=== PATIENT | male | born 1980 | race Two or more races ===

== ENCOUNTER 2024-12-11 00:11 | Emergency (ER) | payer MEDICAID, SELFPAY ==
[2024-12-11 01:10] VITALS: BP 151/96; PULSE 72; RESP 18; TEMP 36.8; O2SAT 97
--- NOTE | 2024-12-11 01:22 | EDNOTE_ITS ---
<Statement entered by Hallie Shin MD - 12/23/24 19:09> As co-signing physician, I was present and available for consult prn. I concur with the plan and care as documented by the midlevel provider. ED Dental RME/HPI General Chief complaint: Dental/Oral/Throat Stated complaint: LEFT CHEEK SWELLING Time Seen by Provider: 12/11/24 00:16 Source: patient, RN notes reviewed and old records reviewed Arrival date/time: 12/11/24 00:11 Mode of arrival: ambulatory Limitations: no limitations RME / HPI RME / HPI Narrative: 44yom presents to ED for 5-day history of dental pain. Patient reports left lower toothache with mild facial swelling tonight. No fever, shortness of breath, nausea/vomiting or neck pain reported. No medications or treatments since symptom onset. Related Data Previous Rx's ?Medication ?Instructions ?Recorded amoxicillin 875 mg-potassium 1 tab PO BID 7 days #14 t abs 12/11/24 clavulanate 125 mg tablet chlorhexidine gluconate 0.12 % 15 ml PO BID #300 mL mouthwash (Peridex) ibuprofen 600 mg tablet 600 mg PO Q6H PRN pain #20 t abs 12/11/24 Allergies Allergy/AdvReac Type Severity Reaction Status Date / Time No Known Allergies Allergy Verified 12/11/24 00:14 Review of Systems Review of Systems Systems Reviewed: All systems reviewed, normal except as documented Constitutional Constitutional: Denies chills, Denies fever(s) and Denies headache(s) ENT Ears, Nose, Mouth, and Throat: Reports dental pain, Denies headache(s), Denies neck pain and Denies sore throat Cardiovascular Cardiovascular: Denies dyspnea Respiratory Respiratory: Denies dyspnea Gastrointestinal Gastrointestinal: Denies nausea and Denies vomiting Musculoskeletal Musculoskeletal: Denies neck pain Neurologic Neurologic: Denies headache(s) Past Medical History Surgical History OTHER SURGICAL HX: Denies past surgical history Social History SMOKING STATUS: Never smoker SUBSTANCE USE: does not use ALCOHOL: Never Past Medical History Comments PMH COMMENT: Denies past medical history ED Exam General Limitations: Present no limitations General appearance: Present alert and in no apparent distress Head Head exam: Present atraumatic and normocephalic Eye Eye exam: Present normal appearance, PERRL and EOMI ENT ENT exam: Present normal oropharynx, mucous membranes moist and other (Tenderness over the left lower premolar. Mild surrounding gingival erythema/swelling. No obvious drainable abscess. Mild left mandibular swelling. No trismus.) Neck Neck exam: Present normal inspection and full ROM; Absent tenderness, meningismus or lymphadenopathy Chest Chest inspection: Present normal inspection and symmetric chest wall rise Respiratory Respiratory exam: Present normal lung sounds bilaterally; Absent respiratory distress or stridor Cardiovascular Cardiovascular exam: Present regular rate and normal rhythm Extremities Exam Extremities exam: Present normal inspection and full ROM Neurological Exam Neurological exam: Present alert and oriented X3 Psychiatric Psychiatric exam: Present normal affect and normal mood Skin Skin exam: Present warm, dry, intact and normal color Course Quality Measures none Orders Category Date Time Status Ibuprofen Tab [Motrin Tab] Med 12/11/24 01:39 Discontinued 800 mg PO X1 ONE Vital Signs Vital signs: Vital Signs Temperature 98.2 F 12/11/24 01:10 Pulse Rate 72 12/11/24 01:10 Respiratory Rate 18 12/11/24 01:10 Blood Pressure 151/96 H 12/11/24 01:10 Pulse Oximetry (%) 97 12/11/24 01:10 Oxygen Delivery Method Room Air 12/11/24 01:10 Dental / Oral MDM Narrative MDM Narrative:: 44yom presents to ED for 5-day history of dental pain. Patient reports left lower toothache with mild facial swelling tonight. No fever, shortness of breath, nausea/vomiting or neck pain reported. No medications or treatments since symptom onset. Will treat for dental pain and possible infection. Encouraged close dentistry follow up. Stable for dc, RTED precautions given. Patient data External records reviewed:: [facility] previous records ( ED visit for perirectal abscess) Clinical information provided by:: patient Social determinants that could affect healthcare access:: other (specify) (Poor access to healthcare, acculturation difficulty) Patient has the following chronic illnesses:: None How is presenting disease/condition affected by chronic disease/condition?: no chronic disease Evaluation data The following diagnostics were reviewed and interpreted by me:: other (specify) (none) Lab and/or radiology exams considered but not ordered:: None Interpretation Summary: na Medications / Prescriptions Medications or Prescriptions considered but not ordered:: None Medication administrations:: Medication Administration History Discontinued Medications Ibuprofen (Ibuprofen Tab 400 Mg Tablet) 800 mg PO X1 ONE Stop: 12/11/24 01:40 Last Admin: 12/11/24 01:45 Dose: 800 mg Documented By: None Consultations Consultation(s) initiated? (list below): No Diagnosis Dental Differential Diagnosis: gingival abscess, dental caries, toothache, dental abscess and fracture of tooth Most likely diagnosis given after review of the tests above:: Dental pain Admission Indicated Admission indicated?: not indicated Admission Request Was there a request for admission?: No Disposition Plan Disposition Plan: Discharge Discharge Attestation Discharge Attestation: The patient and all family members were given an opportunity to ask questions and understood the discharge instructions. Discharge instructions specifically effects, indications for sooner follow up or return to the emergency department, and the expected course of current diagnosis. Patient condition: Stable Discharge Plan Plan Patient Disposition: HOME (Self Care) Patient condition on transfer: Stable Prescriptions/Referrals Prescriptions/Med Rec: New amoxicillin-pot clavulanate 875-125 mg tablet 1 tab PO BID 7 Days Qty: 14 0RF ibuprofen 600 mg tablet 600 mg PO Q6H PRN (Reason: pain) Qty: 20 0RF chlorhexidine gluconate [Peridex] 0.12 % mouthwash 15 ml PO BID Qty: 300 0RF Rx Instructions: Swish and spit. Use for 30 seconds Problem List Clinical Impression: Toothache, Dental caries Patient/Caregiver Discharge Instructions Education Materials: ED Dental Pain Print Language: Armenian Stand Alone Forms: Jerrica Award Info., Patient Portal Info Letter PA/RESIDENTIAL SUBCONTRACTOR Supervising Physician PA/RESIDENTIAL SUBCONTRACTOR Supervising Physician: Kip
[2024-12-11] MEDS: IBUPROFEN TAB 400 MG TABLET 800 MG PO (01:45)
== END 2024-12-11 01:48 | disposition home or self-care (01) ==
LOC: SERX 01:41
PROVIDERS: Emergency Provider Emergency Medicine
DX: K02.9 Dental caries, unspecified (principal)
CPT/HCPCS: 99282; A9270